=== PATIENT | female | born 1995 | race American Indian/Alaskan Native ===

== ENCOUNTER 2020-12-21 11:47 | Inpatient (IN) | payer BC ==
[2020-12-21] MEDS ORDERED: LACTATED RINGERS 1,000 ML IV ONE (12:11)
[2020-12-21 13:37] LABS: Basophils % (Auto) 0.4 % (0.0-1.8); Eosinophils % (Auto) 0.3 % (0.0-4.3); Hematocrit 39.6 % (30.3-42.9); Hemoglobin 12.8 gm/dl (10.1-14.3); Lymphocytes # (Auto) 1.6 K/mm3 (1.2-5.4); Lymphocytes % (Auto) 20.4 % (13.4-35.0); Mean Corpuscular HGB Conc 32 % (30-34); Mean Corpuscular Volume 73 fl (79-97); Monocytes # (Auto) 0.7 K/mm3 (0.0-0.8); Platelet Count 283 K/mm3 (140-440); Red Blood Count 5.39 M/mm3 (3.65-5.03); Red Cell Distribution Width 15.2 % (13.2-15.2)
[2020-12-21 13:43] LABS: Bacteria,Urine 1+ /HPF (Negative); Bilirubin,Urine NEG (Negative); Blood,Urine NEG (Negative); Color,Urine Yellow (Yellow); Hyaline Casts,Urine 1 /LPF; Urobilinogen,Urine < 2.0 mg/dL (<2.0)
[2020-12-21 17:01] LABS: Alanine Aminotransferase 23 units/L (7-56); Albumin 3.2 g/dL (3.9-5); BUN/Creatinine Ratio 13; Blood Urea Nitrogen 10 mg/dL (7-17); Calcium 8.7 mg/dL (8.4-10.2); Hemolysis Index 45
[2020-12-21] MEDS ORDERED: LACTATED RINGERS 1,000 ML ONE (17:05)
--- NOTE | 2020-12-21 17:28 | History and Physical Report ---
History of Present Illness Date of examination: 12/21/20 Date of admission: 12/21/2020 Chief complaint: Gestational Hypertension rule out SI preeclampsia History of present illness: 25-year-old G1, P0 at 36+0/7 weeks, [place] 01/18/2021 admitted from the office for elevated blood pressures and preeclampsia work-up. Patient has gestational hypertension and is on labetalol 100 mg twice daily, blood pressures in the office range 150s/100. Recent 24-hour urine collected on December 04 was 108. Patient denies neurologic complaint. She does admit to lower extremity swelling. care @ [facility]. Past History Past Medical History: hypertension (GHTN) - Obstetrical History Expected Date of Delivery: 01/18/21 Actual Gestation: 36 Week(s) 0 Day(s) : 1 Medications and Allergies Allergies Allergy/AdvReac Type Severity Reaction Status Date / Time No Known Allergies Allergy Verified 12/21/20 12:11 Home Medications Medication Instructions Recorded Confirmed Last Taken Type Aspirin [Adult Aspirin] 81 mg PO DAILY 12/21/20 12/21/20 12/21/20 09:00 History One Daily Tablet 1 tab PO DAILY 12/21/20 12/21/20 12/21/20 10:00 History labetaloL [Labetalol 100mg TAB] 100 mg PO BID 12/21/20 12/21/20 12/21/20 09:00 History Review of Systems All systems: negative (no OB or PIH complaints) - Vital Signs Vital signs: Vital Signs Pulse BP 77 149/101 12/21/20 12:04 12/21/20 12:04 Temp Pulse Resp BP Pulse Ox 98.7 F 75 20 139/93 99 12/21/20 16:44 12/21/20 17:12 12/21/20 16:44 12/21/20 17:12 12/21/20 15:45 - Physical Exam Breasts: Positive: deferred Cardiovascular: Regular rate Lungs: Positive: Clear to auscultation Abdomen: Positive: normal appearance, soft, normal bowel sounds Genitourinary (Female): Positive: normal external genitalia, normal perenium Vagina: Positive: normal moisture Cervix: Positive: lesion Uterus: Positive: normal size Extremities: Positive: normal Deep Tendon Reflex Grade: Normal +2 - Obstetrical FHR: category 1 Results Result Diagrams: 12/21/20 12:15 12/21/20 12:15 Abnormal lab results 12/21/20 12/21/20 Range/Units 12:15 12:15 RBC 5.39 H (3.65-5.03) M/mm3 MCV 73 L (79-97) fl MCH 24 L (28-32) pg [place] % (Auto) 9.0 H (0.0-7.3) % Sodium 135 L (137-145) mmol/L Carbon Dioxide 20 L (22-30) mmol/L Alkaline Phosphatase 136 H (35-129) units/L Albumin 3.2 L (3.9-5) g/dL All other labs normal. Assessment and Plan admission for GHTN r/out SI preeclampsia BPP /8 Labs serial BP's increase labetalol to 200mg BID steroids repeat 24 hour urine protein and BPP in AM repeat BPP in AM monitor closely, delivery for maternal/ indication Main Brown MD
[2020-12-21] MEDS: BETAMET ACET/BETAMET NA PH 6 MG/ML INJ 5 ML MDV IM SCH (18:23)
[2020-12-21 19:10] LABS: Hepatitis C Virus Antibody Non-Reactive (NonReactive)
[2020-12-22] MEDS: LACTATED RINGERS 1,000 ML IV SCH (03:02)
[2020-12-22 07:34] LABS: Hematocrit 42.7 % (30.3-42.9); Hemoglobin 13.4 gm/dl (10.1-14.3); Mean Corpuscular HGB Conc 31 % (30-34); Mean Corpuscular Volume 75 fl (79-97); Platelet Count 256 K/mm3 (140-440); Red Blood Count 5.74 M/mm3 (3.65-5.03); Red Cell Distribution Width 15.6 % (13.2-15.2)
[2020-12-22 07:55] LABS: Alanine Aminotransferase 19 units/L (7-56); Uric Acid 6.8 mg/dL (3.5-7.6)
[2020-12-22] MEDS ORDERED: FLU VACC QUAD 2020-2021 (6 months +)/PF 60 0.5 ML SYRINGE IM ONE (12:00)
--- NOTE | 2020-12-22 12:42 | Ultrasound Report ---
ULTRASOUND BIOPHYSICAL PROFILE INDICATION / CLINICAL INFORMATION: Re-evaluate BPP COMPARISON: Limited obstetrical ultrasound, 12/21/2020 FINDINGS: BREATHING MOVEMENT = 2 GROSS BODY MOVEMENT = 2 TONE = 2 QUALITATIVE AMNIOTIC FLUID VOLUME = 2 TOTAL BIOPHYSICAL SCORE = 8/8 AMNIOTIC FLUID INDEX (cm) = 3.7 cm PRESENTATION: Cephalic. HEART RATE (beats per minute): 130 IMPRESSION: 1. biophysical profile = 8/8. BPP score from the study one day ago was 6/8. Signer Name: Nakia Zhou MD Signed: 12/22/2020 12:37 PM Workstation Name: [id number]
--- NOTE | 2020-12-22 12:54 | Ultrasound Report ---
ULTRASOUND BIOPHYSICAL PROFILE, 12/21/2020 INDICATION / CLINICAL INFORMATION: Evaluate well-being COMPARISON: None FINDINGS: BREATHING MOVEMENT = 0 GROSS BODY MOVEMENT = 2 TONE = 2 QUALITATIVE AMNIOTIC FLUID VOLUME = 2 TOTAL BIOPHYSICAL SCORE = 6/8 AMNIOTIC FLUID INDEX (cm) = 7.6 PRESENTATION: Cephalic. HEART RATE (beats per minute): 138 IMPRESSION: 1. biophysical profile = 04/02 Please note that the patient also had repeat BPP the following day on 12/22/2020. Please see this report. Signer Name: Nakia Zhou MD Signed: 12/22/2020 12:50 PM Workstation Name: [id number]
--- NOTE | 2020-12-22 13:09 | Ultrasound Report ---
Please see obstetrical BPP ultrasound evaluation performed the same day. Signer Name: Nakia Zhou MD Signed: 12/22/2020 1:04 PM Workstation Name: [id number]
[2020-12-22] MEDS: BETAMET ACET/BETAMET NA PH 6 MG/ML INJ 5 ML MDV IM SCH (18:20)
--- NOTE | 2020-12-22 23:06 | Event Note ---
Date: 12/22/20 Nurse notified me of 24hr prot 960mg and BPP 8/8 however YANDY when I asked was 3.7cm. With Oligo, the plan of care is delivery and plan of care explained to the patient and all questions encouraged and answered. Confirmation done with u/sound to make sure this was not an error and for them to make an addendum with score being 6/8 due to low fluid. FHR remains category I and pt is acontractile. Nurse states patient and her took some time to discussed whether they wanted to proceed with the new plan and later accepted it. Will continue the labetalol antihypertensive and will add magnesium sulfate for severe preeclampsia. Will give cervidil induction agent with pelvic exam per nurse / vtx confirmed with the ultrasound. Expect .
[2020-12-22] MEDS ORDERED: DINOPROSTONE 10 MG VAG SUPP VG ONE (23:54)
[2020-12-23] MEDS: LACTATED RINGERS 1,000 ML IV SCH ×3 (08:00→16:52)
[2020-12-23] MEDS ORDERED: OXYTOCIN DRIP 60,000 MILLIUNITS/1,000 ML BAG IV ONE (12:12)
[2020-12-23] MEDS ORDERED: OXYTOCIN DRIP 30,000 MILLIUNITS/500 ML BAG IV ONE (12:13)
[2020-12-23] MEDS ORDERED: BICITRA ORAL LIQD 30ML ONE ×2 (12:13→12:14)
[2020-12-23] MEDS ORDERED: METOCLOPRAMIDE 10 MG/2 ML INJ ONE (12:13)
[2020-12-23] MEDS ORDERED: ceFAZolin/Water 2 GM/20 ML 2 GM/20 ML SYRINGE IV ONE (12:14)
[2020-12-23] MEDS ORDERED: FAMOTIDINE 20 MG/2 ML INJ IV ONE ×2 (12:14→12:21)
--- NOTE | 2020-12-23 12:19 | Anesthesia Consultation ---
Anesthesia Consult and Med Hx Date of service: 12/23/20 - Airway Anesthetic Teeth Evaluation: Good ROM Head & Neck: Adequate Mental/Hyoid Distance: Adequate Mallampati Class: Class II Intubation Access Assessment: Probably Good - Pulmonary Exam CTA: Yes - Cardiac Exam Cardiac Exam: RRR - Pre-Operative Health Status ASA Pre-Surgery Classification: ASA3 Proposed Anesthetic Plan: Spinal - Pulmonary Hx Asthma: No - Cardiovascular System Hx Hypertension: Yes - Central Nervous System Hx Seizures: No Hx Psychiatric Problems: No - Endocrine Hx Renal Disease: No Hx Hypothyroidism: No Hx Hyperthyroidism: No - Hematic Hx Anemia: No Hx Sickle Cell Disease: No - Other Systems Hx Alcohol Use: No Hx Obesity: Yes
--- NOTE | 2020-12-23 12:19 | Anesthesia Day of Surgery ---
Anesthesia Day of Surgery - Day of Surgery Patient Examined: Yes Patient H&P Reviewed: Yes Patient is NPO: Yes
[2020-12-23] MEDS ORDERED: BICITRA ORAL LIQD 30ML PO ONE (12:21)
[2020-12-23] MEDS ORDERED: METOCLOPRAMIDE 10 MG/2 ML INJ IV ONE (12:21)
--- NOTE | 2020-12-23 12:21 | Event Note ---
Date: 12/23/20 Here to evaluate pt after nurse called me stating pt tracing appearing flat in areas. When I arrived, nurse states that pt just SROM and pelvic 1cm and cervidil removed. Plan of care discussed with pt to place IUPC and FSE with monitoring of fetus not continuous and if category, will augment with pitocin. When I evaluated pt, she was 2-3/70/-2 with head ballotable. Fluid also meconium stained and nurse states she did not realize that. FSE placed with fundal pressure applied by nurse and tracing showed FHR in the 80-90's and ctx every 2mins. Plan for section with category 3 tracing remote from delivery. Risks of infection, structural damage and bleeding associated with section. all questions encouraged and answered. NICU and anesthesia notified. records from clinic requested.
[2020-12-23] MEDS ORDERED: BUPIVACAINE/PF (0.5%) 5 MG/1 ML 30 ML VIAL INFILTRATI ONE (12:23)
[2020-12-23] MEDS ORDERED: ONDANSETRON 4 MG/2 ML INJ ONE (12:23)
[2020-12-23] MEDS ORDERED: dexAMETHasone 20 MG/5 ML VIAL ONE (12:23)
[2020-12-23] MEDS ORDERED: LACTATED RINGERS 1,000 ML IV SCH (12:30)
[2020-12-23] MEDS ORDERED: OXYTOCIN DRIP 30 UNITS/500 ML BAG IV SCH ×2 (13:00→15:00)
[2020-12-23] MEDS ORDERED: propofoL 200 MG/20 ML VIAL IV ONE (13:00)
[2020-12-23] MEDS ORDERED: SUCCINYLCHOLINE CHLORIDE 200 MG/10 ML INJ MDV ONE (13:01)
--- NOTE | 2020-12-23 13:27 | Progress Note ---
Spinal Anesthesia Block - Spinal Anesthesia Block Start Time: 12:44 Stop Time: 12:50 Performed by:: ANITHA ADHIKARI Procedure: Sitting, sterile chlorahexadine 0.5% prep/drape, 1% lidocaine skin local, 25G spinal needle + introduced at L3-4, needle not long enough, repeated at L2-3, + CSF, - Heme, [1.9 ml 0.5% bupivacaine + 10 mcg dexmedetomidine] injected, drape removed, patient positioned supine with left uterine displacement, patient with upper extremity weakness, difficulty breathing, assisted with mask ventilations, then decreased LOC. Patient then intubated for airway protection and proceeded with general anesthesia.
[2020-12-23] MEDS ORDERED: KETOROLAC 30 MG/1 ML INJ ONE (14:07)
[2020-12-23] MEDS ORDERED: miSOPROStol 100 MCG TAB ONE (14:12)
[2020-12-23] MEDS ORDERED: miSOPROStol 200 MCG TAB PR ONE (14:14)
[2020-12-23] MEDS ORDERED: PROMETHAZINE 25 MG RECT SUPP PR PRN (14:20)
[2020-12-23] MEDS ORDERED: WITCH HAZEL/ GLYCERIN PAD TP PRN (14:20)
[2020-12-23] MEDS ORDERED: MAGNESIUM HYDROXIDE (MOM) ORAL LIQD UDC PO PRN (14:20)
[2020-12-23] MEDS ORDERED: LANOLIN/ZINC/DIMETHICONE (LANSINOH) 7 GM TP PRN (14:20)
[2020-12-23] MEDS ORDERED: NALOXONE 0.4 MG/1 ML INJ IV PRN (14:20)
[2020-12-23] MEDS ORDERED: ONDANSETRON 4 MG/2 ML INJ IV PRN (14:20)
--- NOTE | 2020-12-23 14:49 | Progress Note ---
Regional Anesthesia Block - Regional Anesthesia Block Start Time: 14:45 Stop Time: 14:55 Performed By:: ANITHA ADHIKARI Procedure: U/S guided bilateral tap block performed for post-operative pain requested by Dr. Gordon. H&P & labs reviewed. Procedure explained, questions answered, consent obtained. Patient in the supine position with ekg, blood pressure cuff and pulse ox on and working in PACU. Timeout performed immediately before start of procedure. Probe placed in the mid-axillary line and the external oblique, internal oblique, and transverse abdominus muscles identified. Skin was cleansed with chlorahexadine 0.5% and allowed to dry. A 4" 20 G Vo echogenic needle was advanced in plane until the tip was in the fascial plane between the internal oblique and the transverse abdominus. After negative aspiration 35 ml/side of [30 ml 0.5% Bupivacaine], [10 mg dexamethasone], and [40 ml sterile saline] was injected in 5 ml increments with negative aspiration in between. Patient tolerated procedure well. Phil ROQUE
--- NOTE | 2020-12-23 15:01 | Procedure Note ---
OB Delivery Note - Delivery Date of Delivery: 12/23/20 Surgeon: LUZ ELENA DENNIS Estimated blood loss: other (400cc) - Section Preop diagnosis: nonreassuring FHR tracing, other (Oligohydramnios, preeclampsia, morbid obesity, meconium stained fluid remote from delivery) Postop diagnosis: same (and small anterior uterine fibroid) section procedure: primary low transverse (via pfannenstiel incision) Disposition: floor Complications: none Narrative: Date: 12/23/20 Surgeon: Luz Elena Dennis MD Preop Dx: IUP at 36.2wks with category III FHR remote from delivery with cervix 2-3cm, preeclampsia, morbid obesity, meconium stained fluid Postop Dx: same and small anterior uterine fibroid approx 2cm Procedure : Emergent primary low transverse section Anesthesia: Spinal done and the patient stated she could not breathe, therefore general anesthesia done Intake: 1000cc crystalloids Output: 100cc clear EBL: 400cc After the risks, benefits and alternatives of procedure discussed, patient signed consents and was taken to the operating room. Pt was given spinal anesthesia. After same was adequate, patient was prepped and draped in the usual sterile fashion. Mosley catheter in place and draining clear urine. Pt was given prophylactic antibiotic per protocol and time out was done. When pt placed supine after spinal, she stated she could not breathe, hence general anesthesia done. Pfannenstiel skin incision was made and taken sharply to the fascia and the incision extended manually. The rectus muscle manually and the peritoneum entered bluntly with good visualization of the bladder. The bladder flap was created sharply and extended manually. Lower uterine segment then entered transversely and amniotic sac entered using allys clamps. Uterine incision extended manually. delivered, bulb suctioned, cord clamped and baby handed to waiting pediatricians. Placenta then delivered completely and uterine cavity cleared of all clots and debri. The uterus was not exteriorized and closed in 2 layers using 0-vicryl suture in a running locked fashion and then an additional layer of imbrication using the same suture. Excellent hemostasis noted. The gutters were cleared of clots and debri and anterior peritoneum closed using [3-0 vicryl] suture and rectus muscle reapproximated using 0-vicryl suture in a running fashion. Rectus fascia closed with 0-vicryl suture in continous running fashion and subcutaneous tissue copiously irrigated with normal saline and re- approximated using 3-0 vicryl suture. Excellent hemostasis remains. The skin was closed with 4-0 monocryl suture and steristrips placed with pressure dressing. Sponge, lap, instrument and needle counts x2 were normal. Patient tolerated the procedure well, she was given tap block post procedure by anesthesia, and cytotec 800mcg per rectum by me for prophylaxis, pt extubated and was taken to recovery room stable. Findings: Viable female infant, vertex, APGARS 6/9 and weight 2150g. Meconium stained fluid. Umbical artery pH 7.12 and BE-9; NICU present for delivery Fibroid uterus, normal tubes and ovaries. - Infant A at 1 minute: 6 at 5 minutes: 9 Infant Gender: Female ( 6/9; Umb pH 7.12; BE -9; wt 2150g)
[2020-12-23] MEDS ORDERED: LORazepam 2 MG/ML VIAL IV STA (15:25)
--- NOTE | 2020-12-23 16:08 | Event Note ---
Date: 12/23/20 pt evaluated in recovery room with pulse in nba 40-50's for which anesthesia personnel believes it was due to a high spinal. Will do EKG stat none the less and nurse notified. Pt to remain on labor and delivery until she is stable. Will continue oral HTN meds as needed. No magnesium sulfate at this time. Review of previous FHR tracing with the charge nurse Ros showed decel down to the 60's at around 2:30am and I was not notified by any nurse. Baby doing well in recovery to bedside.
--- NOTE | 2020-12-23 18:13 | Ultrasound Report ---
ULTRASOUND BIOPHYSICAL PROFILE INDICATION: BPP. COMPARISON: One day prior. FINDINGS: breathing movement = 2 Gross body movement = 2 tone = 2 Qualitative amniotic fluid volume = 2 Total biophysical score = 06/02 Amniotic fluid index is 128 cm. Presentation is Cephalic. IMPRESSION: biophysical profile = 06/02 Signer Name: Sudeep Giles MD Signed: 12/23/2020 6:08 PM Workstation Name: [id number]
[2020-12-23] MEDS: KETOROLAC 30 MG/1 ML INJ IV PRN (20:01)
--- NOTE | 2020-12-23 23:28 | Event Note ---
Date: 12/23/20 pt re-evaluated and now breathing well on room air and pain controlled. Lochia moderate and pulse now 70's. Pt told of uterine fibroid seen intraoperatively. EKG earlier with sinus abiel and pt remained asymptomatic. Will transfer to . Pt with cloudy urine in fowler cath, will send urine culture of same. Pt to remain with SCD's while in bed and will give lovenox 40mg daily starting in the pm tomorrow, 24hrs post surgery unless pt is ambulating well. All questions encouraged and answered. Baby in cot in room and sleeping.
[2020-12-24] MEDS: LACTATED RINGERS 1,000 ML IV SCH (01:53)
[2020-12-24] MEDS: KETOROLAC 30 MG/1 ML INJ IV PRN (01:53)
[2020-12-24] MEDS: oxyCODONE /ACETAMINOPHEN 5-325MG TAB PO PRN ×3 (06:40→20:40)
[2020-12-24 07:54] LABS: Basophils # (Auto) 0.1 K/mm3 (0.0-0.1); Basophils % (Auto) 0.5 % (0.0-1.8); Hematocrit 32.7 % (30.3-42.9); Hemoglobin 10.3 gm/dl (10.1-14.3); Lymphocytes # (Auto) 1.1 K/mm3 (1.2-5.4); Lymphocytes % (Auto) 7.5 % (13.4-35.0); Mean Corpuscular HGB Conc 31 % (30-34); Mean Corpuscular Volume 73 fl (79-97); Monocytes % (Auto) 6.7 % (0.0-7.3); Platelet Count 234 K/mm3 (140-440); Red Blood Count 4.49 M/mm3 (3.65-5.03); Red Cell Distribution Width 14.8 % (13.2-15.2)
--- NOTE | 2020-12-24 07:59 | Post Anesthesia Evaluation ---
- Post Anesthesia Evaluation Patient Participated: Yes Airway Patent: Yes Stable Respiratory Function: Yes Nausea/Vomiting: No Temp > 96.8F: Yes Pain Manageable: Yes Adequeate Hydration: Yes Anesthesia Complications: No Block Receding Appropriately: Yes Patient on Ventilator: No
--- NOTE | 2020-12-24 11:50 | Progress Note ---
Assessment and Plan - Patient Problems (1) Status post primary low transverse section Current Visit: Yes Status: Acute Plan to address problem: Continue routine PP orders Keep dressing clean and dry, remove on POD#2 Anticipate d/c home in 24-48hrs if stable (2) Anemia Current Visit: Yes Status: Acute Qualifiers: Anemia type: other cause Other causes of anemia: acute posthemorrhagic Qualified Code(s): D62 - Acute posthemorrhagic anemia Plan to address problem: Asymptomatic Subjective - Subjective Date of service: 12/24/20 Principal diagnosis: S/P primary C/S; POD#1 Interval history: See admission H & P, OB operative summary and PP progress notes Patient reports: appetite normal, voiding normally, pain well controlled (with medications), flatus, ambulating normally, no bowel movement [place]: doing well, bottle feeding Objective - Vital Signs Latest vital signs: Vital Signs Temp Pulse Resp BP BP Pulse Ox 12/24/20 09:58 130/88 12/24/20 08:35 98.2 F 67 18 130/88 96 12/24/20 06:40 20 12/24/20 05:49 98.2 F 59 L 20 124/79 96 12/24/20 01:45 98.4 F 66 18 116/71 99 12/24/20 00:57 64 99 12/24/20 00:52 84 98 12/24/20 00:47 95 H 98 12/24/20 00:42 77 99 12/24/20 00:37 71 97 12/24/20 00:32 76 98 12/24/20 00:27 73 98 12/24/20 00:22 73 99 12/24/20 00:17 102 H 98 12/24/20 00:12 70 98 12/24/20 00:07 81 98 12/24/20 00:02 78 98 12/23/20 23:57 77 97 12/23/20 23:52 58 L 96 12/23/20 23:47 63 97 12/23/20 23:42 58 L 96 12/23/20 23:37 59 L 98 12/23/20 23:32 63 97 12/23/20 23:27 91 H 100 12/23/20 23:22 80 99 12/23/20 23:17 95 H 99 12/23/20 23:12 71 99 12/23/20 23:07 67 97 12/23/20 23:02 63 98 12/23/20 23:00 84 110/65 12/23/20 22:58 83 94 12/23/20 22:57 76 97 12/23/20 22:52 65 97 12/23/20 22:50 69 93 12/23/20 22:47 99 H 96 12/23/20 22:42 79 99 12/23/20 22:37 70 96 12/23/20 22:32 73 99 12/23/20 22:27 65 96 12/23/20 22:26 75 94 12/23/20 22:22 86 98 12/23/20 22:19 74 93 12/23/20 22:17 90 99 12/23/20 22:12 64 96 12/23/20 22:10 60 94 12/23/20 22:07 62 97 12/23/20 22:02 67 98 12/23/20 21:57 77 96 12/23/20 21:52 94 H 97 12/23/20 21:50 73 94 12/23/20 21:47 59 L 98 12/23/20 21:42 68 98 12/23/20 21:37 93 H 98 12/23/20 21:32 61 99 12/23/20 21:27 71 98 12/23/20 21:22 65 99 12/23/20 21:17 71 98 12/23/20 21:12 73 98 12/23/20 21:07 63 94 12/23/20 21:02 64 98 12/23/20 20:57 76 98 12/23/20 20:52 77 98 12/23/20 20:47 63 97 12/23/20 20:42 63 98 12/23/20 20:40 100 H 93 12/23/20 20:37 63 99 12/23/20 20:32 73 97 12/23/20 20:31 18 12/23/20 20:27 75 100 12/23/20 20:22 68 99 12/23/20 20:17 73 110/65 99 12/23/20 20:15 98.7 F 73 16 110/65 98 12/23/20 20:13 73 93 12/23/20 20:12 62 98 12/23/20 20:07 65 98 12/23/20 20:02 89 98 0228/21 20:01 16 12/23/20 19:57 78 98 12/23/20 19:52 81 98 12/23/20 19:47 64 100 12/23/20 19:42 63 99 12/23/20 19:37 65 99 12/23/20 19:32 65 99 12/23/20 19:27 57 L 100 12/23/20 19:22 62 100 12/23/20 19:17 57 L 100 12/23/20 19:12 59 L 100 12/23/20 19:07 60 100 12/23/20 19:02 62 100 12/23/20 18:57 63 100 12/23/20 18:52 54 L 100 12/23/20 18:47 53 L 100 12/23/20 18:42 97.8 F 51 L 100 12/23/20 18:37 58 L 100 12/23/20 18:32 54 L 100 12/23/20 18:27 62 100 12/23/20 18:22 52 L 100 12/23/20 18:17 53 L 100 12/23/20 18:12 56 L 100 12/23/20 18:07 52 L 100 12/23/20 18:02 50 L 100 12/23/20 17:57 49 L 100 12/23/20 17:52 52 L 100 12/23/20 17:47 47 L 100 12/23/20 17:42 54 L 100 12/23/20 17:37 59 L 100 12/23/20 17:32 50 L 100 12/23/20 17:27 47 L 100 12/23/20 17:22 45 L 100 12/23/20 17:17 46 L 100 12/23/20 17:12 45 L 100 12/23/20 17:09 47 L 141/87 12/23/20 17:07 56 L 100 12/23/20 17:02 45 L 100 12/23/20 16:57 45 L 100 12/23/20 16:52 46 L 100 12/23/20 16:47 52 L 100 12/23/20 16:42 44 L 100 12/23/20 16:37 48 L 98 12/23/20 16:32 53 L 99 12/23/20 16:15 95.0 F L 12/23/20 15:35 96.2 F L 12/23/20 15:20 47 L 16 136/78 100 12/23/20 15:05 55 L 10 L 130/75 100 12/23/20 14:50 62 12 126/82 100 12/23/20 14:45 62 27 H 127/76 98 12/23/20 14:40 96.2 F L 90 22 144/97 100 12/23/20 12:17 72 100 12/23/20 12:14 96 H 135/70 12/23/20 12:12 75 100 12/23/20 12:07 110 H 100 12/23/20 12:02 92 H 100 12/23/20 11:57 62 100 12/23/20 11:52 63 100 Intake and Output 12/23/20 12/24/20 12/24/20 23:59 07:59 15:59 Intake Total 576.25 1156.25 240 Output Total 100 800 200 Balance 476.25 356.25 40 Intake: IV 576.25 676.25 Lactated Ringers 1,000 ml 476.25 676.25 @ 75 mls/hr IV DIRECT [facility] Rx#:[id number] ceFAZolin 2 GM In NaCl 0. 100 9% 100 ml @ 200 mls/hr IV Q8H [facility] Rx#:[id number] Oral 480 240 Output: Urine 100 800 200 Indwelling Catheter 400 Uretheral (Mosley) 400 Void 200 Other: Total, Intake Amount 240 240 Total, Output Amount 400 200 - Exam Breasts: Present: normal Cardiovascular: Present: Regular rate Lungs: Present: Normal air movement Abdomen: Present: soft, tenderness Uterus: Present: firm, fundal height below umbilicus (U-1) Extremities: Present: edema Deep Tendon Reflex Grade: Normal +2 Incision: Present: dressed (no shadow drainage or bleeding noted) - Labs Labs: Abnormal lab results 12/23/20 12/24/20 Range/Units 13:18 07:18 WBC 14.5 H (4.5-11.0) K/mm3 MCV 73 L (79-97) fl MCH 23 L (28-32) pg Lymph % (Auto) 7.5 L (13.4-35.0) % Lymph # (Auto) 1.1 L (1.2-5.4) K/mm3 [place] # (Auto) 1.0 H (0.0-0.8) K/mm3 Seg Neutrophils % 85.3 H (40.0-70.0) % Seg Neutrophils # 12.4 H (1.8-7.7) K/mm3 ABG pH 7.122 L (7.320-7.450) POC ABG pCO2 67.6 H (32.0-48.0) mmHg POC ABG pO2 11.9 L (83-108) mmHg ABG Oxyhemoglobin 9.1 L (94-98) ABG Sodium 135.8 L (136.0-145.0) mmol/L ABG Potassium 6.4 H (3.40-4.50) mmol/L ABG Glucose 48 L (65-95) mg/dL Carboxyhemoglobin 0.3 L (0.5-1.5) Arterial Blood Glucose 48 L (65-95) mg/dL
[2020-12-24] MEDS ORDERED: MEASLES, MUMPS & RUBELLA 12,500 UNIT/0.5 ML VACCINE SUB-Q ONE (14:22)
[2020-12-25] MEDS: oxyCODONE /ACETAMINOPHEN 5-325MG TAB PO PRN (08:05)
--- NOTE | 2020-12-25 10:02 | Progress Note ---
Assessment and Plan A: S/P primary LTCS S/P preeclampsia p: Continue routine pp care Encourage ambulation Continue labetalol with b/p monitoring D/C home tomm if b/p is stable Subjective - Subjective Date of service: 12/25/20 Principal diagnosis: s/p primary c/s Patient reports: appetite normal, voiding normally, pain well controlled, flatus, ambulating normally [place]: doing well, bottle feeding Objective - Vital Signs Latest vital signs: Vital Signs Temp Pulse Resp BP BP Pulse Ox 12/25/20 08:14 97.7 F 68 20 161/99 100 12/25/20 05:06 98.9 F 59 L 18 149/88 94 12/25/20 00:44 98.0 F 62 18 125/78 96 12/24/20 22:07 63 132/87 12/24/20 21:08 98.2 F 63 20 132/87 94 12/24/20 16:10 98.7 F 63 18 134/78 97 12/24/20 12:34 98.4 F 70 18 127/84 98 Intake and Output 12/24/20 12/25/20 12/25/20 22:59 06:59 14:59 Intake Total 600 240 Output Total 350 Balance 250 240 Intake: Oral 240 240 Intake, Free Water 360 Output: Urine 350 Void 350 Other: Total, Intake Amount 240 240 Total, Output Amount 350 # Voids Void 1 1 - Exam Breasts: Present: normal Abdomen: Present: normal appearance, normal bowel sounds Vulva: both: normal Uterus: Present: normal, firm, fundal height below umbilicus Extremities: Present: normal Incision: Present: normal, dry, intact
[2020-12-25] MEDS: IBUPROFEN 800 MG TAB PO PRN (14:35)
--- NOTE | 2020-12-25 16:55 | Event Note ---
Date: 12/25/20 Spoken with RN. Given persistently elevated BPs >= 160s systolic, will proceed with IV labetolol 20mg IV x 1 now if persistently >160/110. PO labetolol 200mg x 1 now. Change regimen from labetolol 200mg BID to q8hr starting at 2200 12/25/20.
[2020-12-26] MEDS: IBUPROFEN 800 MG TAB PO PRN (03:11)
[2020-12-26] MEDS ORDERED: DIPHtheria,PERTUSSIS(ACELL),TETANUS VACCINE/PF 0.5 ML VIAL IM ONE (06:00)
[2020-12-26] MEDS: oxyCODONE /ACETAMINOPHEN 5-325MG TAB PO PRN (13:58)
--- NOTE | 2020-12-26 15:26 | Progress Note ---
Assessment and Plan - Patient Problems (1) Status post primary low transverse section Current Visit: Yes Status: Acute Plan to address problem: stable POD 3. Will d/c home with Labetalol. RTO 1 week for BP check. Preeclamptic precautions d/w pt. Subjective - Subjective Date of service: 12/26/20 (POD 3) Principal diagnosis: s/p primary c/s Patient reports: appetite normal (no preeclamptic sxs. BPs slightly elevated still but stable with Labetalol 300mg TID), voiding normally, pain well controlled, ambulating normally Objective - Vital Signs Latest vital signs: Vital Signs Temp Pulse Resp BP BP BP Pulse Ox 12/26/20 12:18 98.4 F 68 18 158/90 100 12/26/20 07:13 98.4 F 60 18 147/83 97 12/26/20 05:42 57 L 158/91 12/26/20 05:06 57 L 158/91 12/26/20 04:40 98.0 F 58 L 18 158/91 98 12/26/20 03:11 18 12/25/20 23:32 98.5 F 61 18 152/85 100 12/25/20 23:29 61 152/85 12/25/20 21:15 98.0 F 70 18 141/85 100 12/25/20 17:34 150/76 12/25/20 17:10 150/76 12/25/20 16:10 98.3 F 61 20 159/97 99 12/25/20 16:09 164/100 Intake and Output 12/25/20 12/26/20 12/26/20 23:59 07:59 15:59 Intake Total 440 300 Balance 440 300 Intake: Oral 440 Intake, Free Water 300 Other: Total, Intake Amount 200 # Voids Void 1 1 - Exam Abdomen: Present: normal appearance (appropriately tender.), soft Incision: Present: normal, dry, intact
--- NOTE | 2020-12-26 15:33 | Short Stay Summary ---
Short Stay Documentation Narrative H&P: PT is s/p LTCS at 32.6 weeks for preeclampsia. See OP report and H&P for details. PT stable postop. Pt sent home on POD 3 with Labetalol 300mg q 8hrs. RTO 1 week for BP check. - History H&P: dictated - Allergies and Medications Current Medications: Allergies No Known Allergies Allergy (Verified 12/21/20 12:11) Home Medications Medication Instructions Recorded Confirmed Last Taken Type Aspirin [Adult Aspirin] 81 mg PO DAILY 12/21/20 12/21/20 12/21/20 09:00 History One Daily Tablet 1 tab PO DAILY 12/21/20 12/21/20 12/21/20 10:00 History labetaloL [Labetalol 100mg TAB] 100 mg PO BID 12/21/20 12/21/20 12/21/20 09:00 History oxyCODONE /ACETAMINOPHEN [Percocet 2 tab PO Q6HR PRN 14 Days #40 tab 12/23/20 Unknown Rx 5/325] Ibuprofen [Motrin 800 MG tab] 800 mg PO Q6H PRN #30 tablet 12/26/20 Unknown Rx Labetalol HCl [Labetalol 300mg TAB] 300 mg PO Q8H #90 tablet 12/26/20 Unknown Rx Active Medications Lactated Ringer's (Lactated Ringers) 1,000 mls @ 75 mls/hr IV DIRECT ADÁN Last Admin: 12/24/20 01:53 Dose: 75 mls/hr Documented by: Oxytocin/Sodium Chloride (Pitocin/Ns 30 Unit/500ml) 30 units in 500 mls @ 0 mls/hr IV TITR ADÁN; Protocol Oxytocin/Sodium Chloride (Pitocin/Ns 30 Unit/500ml) 30 units in 500 mls @ 40 mls/hr IV TITR ADÁN; Protocol Ibuprofen (Ibuprofen 800 Mg Tab) 800 mg PO Q6H PRN PRN Reason: Pain, Mild (1-3) Last Admin: 12/26/20 03:11 Dose: 800 mg Documented by: Ketorolac Tromethamine (Ketorolac 30 Mg/1 Ml Inj) 30 mg IV Q6H PRN PRN Reason: Pain, Moderate (4-6) Last Admin: 12/24/20 01:53 Dose: 30 mg Documented by: Labetalol HCl (Labetalol 200 Mg Tab) 300 mg PO Q8HR ADÁN Last Admin: 12/26/20 14:00 Dose: 300 mg Documented by: Magnesium Hydroxide (Magnesium Hydroxide (Mom) Oral Liqd Udc) 30 ml PO QHS PRN PRN Reason: Constip Unrelieved By Senna Last Admin: 12/24/20 22:08 Dose: 30 ml Documented by: Multi-Ingredient Ointment (Lanolin/Zinc/Dimethicone (Lansinoh) 7 Gm) 1 applic TP PRN PRN PRN Reason: dryness/cracking Naloxone HCl (Naloxone 0.4 Mg/1 Ml Inj) 0.1 mg IV Q2MIN PRN PRN Reason: Res Rate </= 8 or 02 SAT < 92% Ondansetron HCl (Ondansetron 4 Mg/2 Ml Inj) 4 mg IV Q8H PRN PRN Reason: Nausea And Vomiting Oxycodone/Acetaminophen (Oxycodone /Acetaminophen 5-325mg Tab) 2 tab PO Q4H PRN PRN Reason: Pain, Moderate (4-6) Last Admin: 12/26/20 13:58 Dose: 2 tab Documented by: Promethazine HCl (Promethazine 25 Mg Rect Supp) 25 mg KS Q6H PRN PRN Reason: N/V IF NPO AND NO IV ACCESS Sodium Chloride (Sodium Chloride 0.9% 10 Ml Flush Syringe) 10 ml IV PRN NR Stop: 12/28/20 14:59 Witch Rachael/Glycerin (Witch Rachael/ Glycerin Pad) 1 each TP PRN PRN PRN Reason: Hemorrhoids/cleansing/soothing - Physical exam Breasts: normal - Disposition Condition at discharge: Stable Disposition: [id number] TO HOME OR SELFCARE - Discharge Diagnoses (1) Status post primary low transverse section Status: Acute Short Stay Discharge Plan Follow up with: ALEJANDRO GABRIEL MD [Primary Care Provider] - 7 Days Prescriptions: Labetalol HCl [Labetalol 300mg TAB] 300 mg PO Q8H #90 tablet Ibuprofen [Motrin 800 MG tab] 800 mg PO Q6H PRN #30 tablet PRN Reason: Pain, Mild (1-3) oxyCODONE /ACETAMINOPHEN [Percocet 5/325] 2 tab PO Q6HR PRN 14 Days #40 tab PRN Reason: Pain , Severe (7-10)
[2020-12-26 16:15] VITALS: BP 149/79
== END 2020-12-26 16:55 | disposition home or self-care (01) | DRG 787 ==
LOC: TRG 11:47 → APU 11:49 → TRG 17:06 → LD 17:06 → OB 12-24 01:34
PROVIDERS: ADMIT Obstetrics & Gynecology; ATTEND Obstetrics & Gynecology
PROC: 10D00Z1 Extraction of Products of Conception, Low, Open Approach (ICD-10-PCS; principal; 2020-12-23)
DX: O13.4 Gestational [pregnancy-induced] hypertension without significant proteinuria, complicating childbirth (principal); O41.03X0 Oligohydramnios, third trimester, not applicable or unspecified; D62 Acute posthemorrhagic anemia; O77.0 Labor and delivery complicated by meconium in amniotic fluid; Z20.822 Contact with and (suspected) exposure to COVID-19; O36.8330 Maternal care for abnormalities of the fetal heart rate or rhythm, third trimester, not applicable or unspecified; O99.214 Obesity complicating childbirth; O14.14 Severe pre-eclampsia complicating childbirth; E66.01 Morbid (severe) obesity due to excess calories; Z71.3 Dietary counseling and surveillance; Z3A.36 36 weeks gestation of pregnancy; Z37.0 Single live birth
CPT/HCPCS: 36415; 59025; 59200; 76815; 76819; 80053; 81001; 82565; 82805; 83615; 84156; 84450; 84460; 84550; 85025; 85027; 86592; 86706; 86762; 86803; 86850; 86900; 86901; 87086; 87806; 88307; 90471; 90715; 93005; 96360; G0378; J0330; J0690; J0702; J1100; J1885; J2060; J2405; J2704; J2765; J3490; J7120; U0003